=== PATIENT | male | born 1970 | race Caucasian/White ===

== ENCOUNTER 2024-04-27 15:07 | Inpatient (IN) | payer OTHER ==
[2024-04-27 17:25] LABS: EOS % 0.2 % (0-4.5); HEMATOCRIT 46.9 % (35.4-49); HEMOGLOBIN 15.4 GM/dL (11.7-16.9); MCHC 32.9 g/dl (32.0-35.9); MEAN PLT VOLUME 8.3 fl (7.5-11.1); MONO % 7.5 % (3.8-10.2); NEUT % 71.3 % (42.8-82.8); PLATELET COUNT 222 10^3/uL (134-434); RBC 5.72 M/mm3 (4.00-5.60); RDW 15.1 % (11.9-15.9); WHITE BLOOD COUNT 10.8 K/mm3 (4.0-10.0)
[2024-04-27 17:38] LABS: POTASSIUM 4.1 mmol/L (3.5-5.1)
[2024-04-27 17:39] LABS: CALCIUM 8.8 mg/dL (8.5-10.1)
[2024-04-27 17:41] LABS: ALBUMIN 3.3 g/dl (3.4-5.0); BLOOD UREA NITROGEN 13.7 mg/dL (7-18)
[2024-04-27 17:44] LABS: CREATININE 1.5 mg/dL (0.55-1.3)
[2024-04-27 17:45] LABS: BILIRUBIN,TOTAL 2.2 mg/dL (0.2-1)
[2024-04-27 17:49] LABS: N-TERMINAL BNP 9250.2 pg/ml (5-125)
[2024-04-27] MEDS: SODIUM CHLORIDE 0.9% 1000 ML INFUS.BAG IV STA (22:16)
[2024-04-28] MEDS ORDERED: FUROSEMIDE 40 MG/4 ML INJECTABLE VIAL ONE (05:40)
[2024-04-28] MEDS: FUROSEMIDE 40 MG/4 ML INJECTABLE VIAL IVPUSH ONE (05:46)
[2024-04-28 06:16] LABS: BASO % 0.9 % (0-2.0); EOS % 0.5 % (0-4.5); HEMATOCRIT 46.6 % (35.4-49); LYMPH % 24.5 % (8-40); MCH 26.4 pg (25.7-33.7); MCHC 32.3 g/dl (32.0-35.9); MEAN CELL VOLUME 81.7 fl (80-96); MEAN PLT VOLUME 8.7 fl (7.5-11.1); MONO % 7.5 % (3.8-10.2); NEUT % 66.6 % (42.8-82.8); PLATELET COUNT 215 10^3/uL (134-434); RDW 15.4 % (11.9-15.9); WHITE BLOOD COUNT 9.6 K/mm3 (4.0-10.0)
[2024-04-28 06:35] LABS: POTASSIUM 3.9 mmol/L (3.5-5.1)
[2024-04-28 06:38] LABS: CALCIUM 9.1 mg/dL (8.5-10.1)
[2024-04-28 06:39] LABS: ALBUMIN 3.2 g/dl (3.4-5.0); BLOOD UREA NITROGEN 15.6 mg/dL (7-18); MAGNESIUM 1.8 mg/dL (1.8-2.4)
[2024-04-28 06:40] LABS: BILIRUBIN,DIRECT 0.6 mg/dL (0.0-0.2)
[2024-04-28 06:42] LABS: BILIRUBIN,TOTAL 2.2 mg/dL (0.2-1); CREATININE 1.1 mg/dL (0.55-1.3); PHOSPHOROUS 4.2 mg/dL (2.5-4.9); TOT PROT 6.9 g/dl (6.4-8.2)
[2024-04-28] MEDS: ENOXAPARIN NA (PORCINE) 40 MG/0.4 ML DISP.SYRIN SQ SCH (10:06)
[2024-04-28 11:48] LABS: INR 1.29 (0.83-1.09); PROTHROMBIN TIME (PATIENT) 14.7 SEC (9.7-13.0)
[2024-04-28] MEDS: FUROSEMIDE 40 MG/4 ML INJECTABLE VIAL IVPUSH SCH (15:50)
[2024-04-28] MEDS: ISOSORBIDE MONONITRATE 30 MG TAB.SR.24H (FP) PO SCH (15:50)
[2024-04-28] MEDS: glipiZIDE 5 MG TABLET (FP) PO SCH (15:50)
[2024-04-28 16:02] LABS: BF WBC & OTHER NUCLEATED CELLS 451 /mm3; BODY FLUID MACROPHAGES 26 %; BODY FLUID MESOTHELIAL 3 %; BODY FLUID MONOCYTE 5 %
[2024-04-28] MEDS: INSULIN ASPART SLIDING SCALE (NOVOLOG) 1 VIAL SQ SCH (16:23)
[2024-04-28 20:32] LABS: CREATININE, URINE RANDOM < 13.0 mg/dL (30-150)
[2024-04-28] MEDS: CARVEDILOL 3.125 MG TABLET (FP) PO SCH (21:40)
[2024-04-28] MEDS: ATORVASTATIN CA 40 MG TABLET (FP) PO SCH (21:40)
[2024-04-29 08:37] LABS: BASO % 0.5 % (0-2.0); HEMATOCRIT 43.9 % (35.4-49); HEMOGLOBIN 14.2 GM/dL (11.7-16.9); LYMPH % 22.5 % (8-40); MCH 26.3 pg (25.7-33.7); MCHC 32.4 g/dl (32.0-35.9); MEAN CELL VOLUME 81.2 fl (80-96); MEAN PLT VOLUME 8.7 fl (7.5-11.1); MONO % 7.2 % (3.8-10.2); NEUT % 68.8 % (42.8-82.8); PLATELET COUNT 188 10^3/uL (134-434); RDW 15.1 % (11.9-15.9); WHITE BLOOD COUNT 8.7 K/mm3 (4.0-10.0)
[2024-04-29 08:51] LABS: POTASSIUM 3.2 mmol/L (3.5-5.1)
[2024-04-29 08:56] LABS: ALBUMIN 2.8 g/dl (3.4-5.0); BLOOD UREA NITROGEN 17.8 mg/dL (7-18)
[2024-04-29 08:57] LABS: CALCIUM 8.1 mg/dL (8.5-10.1); MAGNESIUM 1.4 mg/dL (1.8-2.4)
[2024-04-29 08:59] LABS: CREATININE 1.2 mg/dL (0.55-1.3); PHOSPHOROUS 4.5 mg/dL (2.5-4.9)
[2024-04-29 09:00] LABS: BILIRUBIN,TOTAL 1.8 mg/dL (0.2-1)
[2024-04-29] MEDS: MAGNESIUM 2GM/50ML STERILE WATER IVPB IVPB SCH (10:03)
[2024-04-29] MEDS: ENOXAPARIN NA (PORCINE) 40 MG/0.4 ML DISP.SYRIN SQ SCH (10:04)
[2024-04-29] MEDS: POTASSIUM CHLORIDE ORAL LIQUID 20 MEQ/15 ML PO ONE (10:05)
[2024-04-29] MEDS: hydrALAZINE HCL 10 MG TABLET PO SCH (13:51)
[2024-04-29] MEDS: POTASSIUM CHLORIDE ORAL LIQUID 20 MEQ/15 ML PO SCH (21:35)
[2024-04-30 07:40] LABS: BASO % 0.8 % (0-2.0); EOS % 1.4 % (0-4.5); HEMATOCRIT 42.5 % (35.4-49); LYMPH % 23.6 % (8-40); MCH 26.8 pg (25.7-33.7); MCHC 32.9 g/dl (32.0-35.9); MEAN CELL VOLUME 81.5 fl (80-96); MEAN PLT VOLUME 8.5 fl (7.5-11.1); MONO % 7.8 % (3.8-10.2); NEUT % 66.4 % (42.8-82.8); PLATELET COUNT 191 10^3/uL (134-434); RBC 5.21 M/mm3 (4.00-5.60); RDW 14.8 % (11.9-15.9); WHITE BLOOD COUNT 8.3 K/mm3 (4.0-10.0)
[2024-04-30 08:06] LABS: POTASSIUM 3.4 mmol/L (3.5-5.1)
[2024-04-30 08:15] LABS: PH,URINE 7.5 (5.0-8.0); URINE APPEARANCE CLEAR; URINE BILIRUBIN NEGATIVE (NEGATIVE); URINE COLOR YELLOW; URINE GLUCOSE (UA) NEGATIVE (NEGATIVE); URINE KETONE NEGATIVE (NEGATIVE); URINE LEUK ESTERASE NEGATIVE (NEGATIVE); URINE NITRITE NEGATIVE (NEGATIVE); URINE PROTEIN NEGATIVE (NEGATIVE)
[2024-04-30 08:20] LABS: BLOOD UREA NITROGEN 15.4 mg/dL (7-18); CALCIUM 8.1 mg/dL (8.5-10.1); MAGNESIUM 1.5 mg/dL (1.8-2.4)
[2024-04-30 08:24] LABS: BILIRUBIN,TOTAL 1.7 mg/dL (0.2-1); CREATININE 1.1 mg/dL (0.55-1.3); PHOSPHOROUS 3.9 mg/dL (2.5-4.9); TOT PROT 6.6 g/dl (6.4-8.2)
[2024-04-30] MEDS: MAGNESIUM 2GM/50ML STERILE WATER IVPB IVPB ONE ×2 (11:44→13:02)
[2024-04-30] MEDS: MAGNESIUM OXIDE 400 MG TABLET (FP) PO ONE (13:02)
[2024-05-01 08:18] LABS: BASO % 0.9 % (0-2.0); EOS % 1.5 % (0-4.5); HEMOGLOBIN 14.4 GM/dL (11.7-16.9); LYMPH % 25.5 % (8-40); MCH 27.1 pg (25.7-33.7); MCHC 33.6 g/dl (32.0-35.9); MEAN CELL VOLUME 80.5 fl (80-96); MEAN PLT VOLUME 8.6 fl (7.5-11.1); MONO % 7.6 % (3.8-10.2); NEUT % 64.5 % (42.8-82.8); PLATELET COUNT 209 10^3/uL (134-434); RBC 5.34 M/mm3 (4.00-5.60); RDW 15.2 % (11.9-15.9); WHITE BLOOD COUNT 8.3 K/mm3 (4.0-10.0)
[2024-05-01 08:29] LABS: POTASSIUM 3.9 mmol/L (3.5-5.1)
[2024-05-01 08:32] LABS: CALCIUM 8.7 mg/dL (8.5-10.1)
[2024-05-01 08:33] LABS: ALBUMIN 3.2 g/dl (3.4-5.0); BLOOD UREA NITROGEN 22.3 mg/dL (7-18)
[2024-05-01 08:36] LABS: CREATININE 1.2 mg/dL (0.55-1.3); PHOSPHOROUS 3.7 mg/dL (2.5-4.9)
[2024-05-01 08:37] LABS: BILIRUBIN,TOTAL 1.1 mg/dL (0.2-1)
[2024-05-01 08:38] LABS: TOT PROT 6.8 g/dl (6.4-8.2)
[2024-05-01] MEDS: CEFTRIAXONE 2 GM in DEXTROSE 5%-WATER 100 ML IVPB SCH (15:00)
[2024-05-02 07:40] LABS: HEMATOCRIT 42.1 % (35.4-49); MCH 26.9 pg (25.7-33.7); MCHC 33.1 g/dl (32.0-35.9); MEAN CELL VOLUME 81.3 fl (80-96); MEAN PLT VOLUME 8.8 fl (7.5-11.1); PLATELET COUNT 193 10^3/uL (134-434); RBC 5.19 M/mm3 (4.00-5.60); RDW 14.9 % (11.9-15.9); WHITE BLOOD COUNT 8.5 K/mm3 (4.0-10.0)
[2024-05-02 08:04] LABS: POTASSIUM 3.7 mmol/L (3.5-5.1)
[2024-05-02 08:07] LABS: CALCIUM 8.5 mg/dL (8.5-10.1)
[2024-05-02 08:08] LABS: BLOOD UREA NITROGEN 21.5 mg/dL (7-18); MAGNESIUM 1.9 mg/dL (1.8-2.4)
[2024-05-02] MEDS: TORSEMIDE 20 MG TABLET (FP) PO SCH (09:45)
[2024-05-02] MEDS: VALSARTAN 40 MG TABLET PO SCH (09:45)
[2024-05-02 15:09] LABS: BODY FLUID ALBUMIN 2.2 g/dL (Not Estab.)
[2024-05-02] MEDS: ACETAMINOPHEN 325 MG TABLET (FP) PO ONE (18:37)
[2024-05-02] MEDS: CARVEDILOL 6.25 MG TABLET (FP) PO SCH (21:03)
[2024-05-03 09:13] LABS: HEMOGLOBIN 14.7 GM/dL (11.7-16.9); MCH 26.8 pg (25.7-33.7); MCHC 33.4 g/dl (32.0-35.9); MEAN CELL VOLUME 80.2 fl (80-96); MEAN PLT VOLUME 8.7 fl (7.5-11.1); PLATELET COUNT 203 10^3/uL (134-434); RBC 5.49 M/mm3 (4.00-5.60); RDW 15.3 % (11.9-15.9); WHITE BLOOD COUNT 7.3 K/mm3 (4.0-10.0)
[2024-05-03 09:40] LABS: POTASSIUM 3.8 mmol/L (3.5-5.1)
[2024-05-03] MEDS: SPIRONOLACTONE 25 MG TABLET PO SCH (09:43)
[2024-05-03 09:47] LABS: BLOOD UREA NITROGEN 18.8 mg/dL (7-18)
[2024-05-03 09:48] LABS: CALCIUM 8.7 mg/dL (8.5-10.1)
[2024-05-03 15:03] VITALS: BMI 24.7
[2024-05-04 07:19] LABS: HEMATOCRIT 42.3 % (35.4-49); HEMOGLOBIN 13.9 GM/dL (11.7-16.9); MCH 26.6 pg (25.7-33.7); MCHC 32.9 g/dl (32.0-35.9); MEAN CELL VOLUME 81.1 fl (80-96); MEAN PLT VOLUME 8.8 fl (7.5-11.1); PLATELET COUNT 191 10^3/uL (134-434); RBC 5.22 M/mm3 (4.00-5.60); RDW 15.1 % (11.9-15.9); WHITE BLOOD COUNT 7.9 K/mm3 (4.0-10.0)
[2024-05-04 07:38] LABS: POTASSIUM 3.5 mmol/L (3.5-5.1)
[2024-05-04 07:41] LABS: CALCIUM 8.4 mg/dL (8.5-10.1)
[2024-05-04 07:42] LABS: BLOOD UREA NITROGEN 20.5 mg/dL (7-18)
[2024-05-05 06:42] VITALS: RESP 16
[2024-05-05 10:07] LABS: HEMATOCRIT 44.7 % (35.4-49); HEMOGLOBIN 14.9 GM/dL (11.7-16.9); MCH 26.8 pg (25.7-33.7); MCHC 33.4 g/dl (32.0-35.9); MEAN CELL VOLUME 80.4 fl (80-96); MEAN PLT VOLUME 8.9 fl (7.5-11.1); PLATELET COUNT 202 10^3/uL (134-434); RBC 5.56 M/mm3 (4.00-5.60); RDW 15.2 % (11.9-15.9)
[2024-05-05 10:57] LABS: CALCIUM 9.1 mg/dL (8.5-10.1)
[2024-05-05 10:58] LABS: ALBUMIN 3.2 g/dl (3.4-5.0); BLOOD UREA NITROGEN 22.6 mg/dL (7-18)
[2024-05-05 11:02] LABS: BILIRUBIN,TOTAL 1.2 mg/dL (0.2-1); CREATININE 1.1 mg/dL (0.55-1.3); TOT PROT 7.1 g/dl (6.4-8.2)
[2024-05-06 07:52] LABS: HEMATOCRIT 44.8 % (35.4-49); HEMOGLOBIN 14.7 GM/dL (11.7-16.9); MCH 26.9 pg (25.7-33.7); MCHC 32.8 g/dl (32.0-35.9); MEAN CELL VOLUME 81.9 fl (80-96); MEAN PLT VOLUME 8.7 fl (7.5-11.1); PLATELET COUNT 198 10^3/uL (134-434); RBC 5.47 M/mm3 (4.00-5.60); RDW 14.9 % (11.9-15.9); WHITE BLOOD COUNT 8.3 K/mm3 (4.0-10.0)
[2024-05-06 08:05] LABS: POTASSIUM 3.8 mmol/L (3.5-5.1)
[2024-05-06 08:13] LABS: BLOOD UREA NITROGEN 20.8 mg/dL (7-18)
[2024-05-06 08:17] LABS: CREATININE 1.2 mg/dL (0.55-1.3)
[2024-05-06 10:47] VITALS: BP 115/81; PULSE 84; TEMP 98.1
[2024-05-06] MEDS: CEFTRIAXONE 2 GM in DEXTROSE 5%-WATER 100 ML IVPB ONE (11:50)
== END 2024-05-06 14:00 | disposition home or self-care (01) | DRG 952 ==
LOC: JER 15:07 → JERBED 04-28 03:55 → OBSVTOIN 04-28 09:15 → J4S 04-28 10:31
PROVIDERS: ADMIT Internal Medicine; ATTEND Internal Medicine
PROC: 0W9G3ZX Drainage of Peritoneal Cavity, Percutaneous Approach, Diagnostic (ICD-10-PCS; principal; 2024-04-28)
DX: I11.0 Hypertensive heart disease with heart failure (principal); I31.39 Other pericardial effusion (noninflammatory); R18.8 Other ascites; I42.0 Dilated cardiomyopathy; K65.9 Peritonitis, unspecified; E83.42 Hypomagnesemia; E11.65 Type 2 diabetes mellitus with hyperglycemia; E87.70 Fluid overload, unspecified; I50.21 Acute systolic (congestive) heart failure; E11.9 Type 2 diabetes mellitus without complications; E78.5 Hyperlipidemia, unspecified; I16.0 Hypertensive urgency
CPT/HCPCS: 0241U-QW; 36415; 71045-TC-FY; 71046-TC-FY; 71275-TC; 74176-TC; 76705-TC; 76775-TC; 76942-TC; 80048; 80053; 80061; 81003; 82042; 82150; 82248; 82465; 82550; 82570; 82945; 82962; 83036; 83615; 83735; 83880; 83986; 84100; 84156; 84157; 84439; 84443; 84478; 84484; 85025; 85027; 85610; 86704; 86709; 86803; 87070; 87075; 87102; 87116; 87205; 87206; 87210; 87340; 87517; 88104; 88108; 88305-TC; 93005; 93010; 93306-TC; 99285-25; G0378; Q9967